=== PATIENT | male | born 1950 | race Caucasian/White ===

== ENCOUNTER 2018-04-30 10:36 | Day surgery (SDC) | payer MEDICARE, BC ==
[2018-04-23 12:19] VITALS: BMI 25.8
[~2018-04-30 10:36] MED LIST: LIDOCAINE 1% 20 ML VIAL (10MG/ML) FOR IV START INTRADERMA PRN; MIDAZOLAM (PF) 2 MG/2 ML VIAL IV PRN
[2018-04-30 11:04] VITALS: PULSE 59; RESP 16; TEMP 97.1
[2018-04-30] MEDS: LACTATED RINGERS 1,000 ML IV SCH ×2 (11:15→11:58)
[2018-04-30] MEDS ORDERED: PROPOFOL 10 MG/ML 20 ML VIAL IV ONE (12:02)
[2018-04-30] MEDS ORDERED: IV FLUID CONTINUATION 1,000 ML IV ONE (12:20)
[2018-04-30 12:22] VITALS: BP 146/87
--- NOTE | 2018-04-30 12:24 | P.PCN ---
Date of Procedure: 04/30/18 Procedure(s) Performed: Procedure: Esophagogastroduodenoscopy and biopsy. Preoperative diagnosis: Chronic reflux symptoms. Postoperative diagnosis: 1. No definite hiatal hernia or obvious esophagitis or complicated reflux disease. 2. Mild gastritis. 3. Multiple biopsies obtained from the duodenum, antrum and esophagus. Preparation sedation: Was provided by anesthesia. Brief clinical history: The patient is 67-year-old male who was chronic symptoms of sore throat and acid regurgitation in his throat for which he has medicated with antacids as needed. No alarm symptoms. He was evaluated by ENT and referred to us for further evaluation for esophagitis or complicated reflux disease. Procedure: With the patient on his left lateral decubitus position and after informed consent and adequate sedation, I passed the Olympus-GIF 160 video upper endoscope through the cricopharyngeus down the esophagus. GE junction was around 40-41 cm from the incisors and there was no definite hiatal hernia or any obvious esophagitis or complicated reflux disease. The endoscope was then passed into the stomach which was insufflated with air and inspected in detail including the retroflex view in the cardia. There was some mottling and erythema in the antrum but no ulcers or erosions. Pyloric channel, duodenal bulb, post bulbar area and descending duodenum appeared within normal limits. I obtained multiple biopsies from the duodenum, antrum and esophagus then the endoscope was withdrawn. The patient tolerated the procedure well. Plan: The patient was reassured. Will await biopsy results and make further plans based on his course and biopsy results. He will follow up with you as planned.
== END 2018-04-30 12:50 | disposition home or self-care (01) ==
LOC: ORWHC2ENDO 10:36
DX: K29.50 Unspecified chronic gastritis without bleeding (principal); K21.9 Gastro-esophageal reflux disease without esophagitis; I10 Essential (primary) hypertension; Z87.891 Personal history of nicotine dependence; F32.9 Major depressive disorder, single episode, unspecified; G47.00 Insomnia, unspecified; G62.9 Polyneuropathy, unspecified; Z79.899 Other long term (current) drug therapy
CPT/HCPCS: 88305; 43239; J2704

== ENCOUNTER 2024-06-21 10:34 | Emergency (ER) | payer MEDICARE, BC ==
--- NOTE | 2024-06-21 11:20 | ED ---
Abdominal Pain HPI - General Chief Complaint: Abdominal Pain Stated Complaint: constipation Time Seen by Provider: 06/21/24 10:51 Source: patient, RN notes reviewed Mode of arrival: ambulatory Limitations: no limitations - History of Present Illness Initial Comments: This is a 73-year-old male with history of GERD and TURP presenting for constipation x 3 weeks. Patient endorses history of recurrent constipation. Complaining of lower abdominal pain starting earlier today. Patient states he went to urgent care for an enema twice with minimal relief. Endorses use of Fleet enema, magnesium citrate and docusate at home with minimal relief. Endorses recent colonoscopy with discovery of benign polyps. Denies fever, chills, dyspnea, chest pain, nausea/vomiting. MD Complaint: abdominal pain Onset/Timin -: week(s) Location: LLQ, RLQ Radiation: none Migration to: no migration Severity scale (1-10): 3 Quality: cramping Consistency: constant Improves With: nothing Worsens With: nothing Treatments Prior to Arrival: other (Fleet enema, mag citrate, docusate) - Related Data Home Medications Medication Instructions Recorded Confirmed Doxycycline Hyclate 100 mg PO DAILY 04/23/18 04/30/18 Lidocaine 5% Patch [Lidoderm] 1 patch TOPICAL DAILY PRN 04/23/18 04/30/18 Losartan Potassium [Cozaar] 100 mg PO DAILY 04/23/18 04/30/18 Metoprolol Tartrate [Lopressor] 50 mg PO BID 04/23/18 04/30/18 Prazosin HCl 1 mg PO HS 04/23/18 04/30/18 Sertraline [Zoloft] 100 mg PO DAILY 04/23/18 04/30/18 Zolpidem Tartrate [Ambien] 10 mg PO HS PRN 04/23/18 04/30/18 Previous Rx's Medication Instructions Recorded Sennosides [Senokot] 17.2 mg PO DAILY #20 tablet 06/21/24 Allergies Allergy/AdvReac Type Severity Reaction Status Date / Time IV CONTRAST Allergy Unknown Uncoded 04/30/18 10:58 Review of Systems ROS Statement: Those systems with pertinent positive or pertinent negative responses have been documented in the HPI. ROS Other: All systems not noted in ROS Statement are negative. Past Medical History Past Medical History: GERD/Reflux, Hypertension, Skin Disorder Additional Past Medical History / Comment(s): tastes acid in mouth, sore throat @times, dry cough, bumps on scalp, lyly. peripheral neuropathy-numb from knees down, hx. colon polyps History of Any Multi-Drug Resistant Organisms: None Reported Past Surgical History: Hernia Repair, Orthopedic Surgery, Prostate Surgery Additional Past Surgical History / Comment(s): prostate surg. x4-some for bleeding, TURP x2, ORIF left ankle, colonoscopies,cataracts removed Past Anesthesia/Blood Transfusion Reactions: Motion Sickness, Postoperative Jitendra sea & Vomiting (PONV) Past Psychological History: PTSD Past Alcohol Use History: Occasional Past Drug Use History: None Reported - Past Family History Mother Family Medical History: No Reported History General Exam Limitations: no limitations General appearance: alert, in no apparent distress Head exam: Present: atraumatic, normocephalic, normal inspection Eye exam: Present: normal appearance, PERRL, EOMI. Absent: scleral icterus, conjunctival injection, periorbital swelling ENT exam: Present: normal exam, mucous membranes moist Neck exam: Present: normal inspection. Absent: tenderness, meningismus, lymphadenopathy Respiratory exam: Present: normal lung sounds bilaterally. Absent: respiratory distress, wheezes, rales, rhonchi, stridor Cardiovascular Exam: Present: regular rate, normal rhythm, normal heart sounds. Absent: systolic murmur, diastolic murmur, rubs, gallop, clicks GI/Abdominal exam: Present: soft, tenderness (Diffuse tenderness, especially in lower quadrants), diminished bowel sounds, hypoactive bowel sounds. Absent: distended, guarding, rebound, rigid Rectal exam: Present: normal inspection, normal rectal tone. Absent: black stool, bloody stool, fecal impaction, hemorrhoids, mass, tenderness Extremities exam: Present: normal inspection, full ROM, normal capillary refill. Absent: tenderness, pedal edema, joint swelling, calf tenderness Back exam: Present: normal inspection Neurological exam: Present: alert, oriented X3, CN II-XII intact Psychiatric exam: Present: normal affect, normal mood Skin exam: Present: warm, dry, intact, normal color. Absent: rash Course Vital Signs 06/21/24 06/21/24 06/21/24 10:50 13:47 16:11 Temperature 97.5 F L 98.1 F Pulse Rate 69 72 66 Respiratory 20 18 18 Rate Blood Pressure 164/84 162/72 155/86 O2 Sat by Pulse 99 97 97 Oximetry Medical Decision Making - Medical Decision Making Was pt. sent in by a medical professional or institution (, JORDY, DIRECTOR OF QUALITY IMPROVEMENT, urgent care, hospital, or long term...) When possible be specific @ -No Did you speak to anyone other than the patient for history (EMS, parent, family, police, friend...)? What history was obtained from this source @ -No Did you review nursing and triage notes (agree or disagree)? Why? @ -I reviewed and agree with nursing and triage notes Were old charts reviewed (outside hosp., previous admission, EMS record, old EKG, old radiological studies, urgent care reports/EKG's, long term records)? Report findings @ -No old charts were reviewed Differential Diagnosis (chest pain, altered mental status, abdominal pain women, abdominal pain men, vaginal bleeding, weakness, fever, dyspnea, syncope, headache, dizziness, GI bleed, back pain, seizure, CVA, palpatations, mental health, musculoskeletal)? @ -Differential Abdominal Pain Men: Appendicitis, cholecystitis, diverticulosis, ischemic bowel, pancreatitis, he patitis, UTI, gastroenteritis, AAA, incarcerated hernia, bowel obstruction, constipation, inflammatory bowel, hepatitis, peptic ulcer disease, splenic infarction, perforated viscus, testicular torsion, this is not meant to be an all-inclusive list EKG interpreted by me (3pts min.). @ -Not done X-rays interpreted by me (1pt min.). @ - KUB shows nonobstructive bowel gas pattern. CT interpreted by me (1pt min.). @ -Abdomen/pelvic CT shows no evidence of acute process. Mild colonic stool with diverticulosis noted as well as prostatomegaly. U/S interpreted by me (1pt. min.). @ -None done What testing was considered but not performed or refused? (CT, X-rays, U/S, labs)? Why? @ -None What meds were considered but not given or refused? Why? @ -None Did you discuss the management of the patient with other professionals (professionals i.e. JORDY Rey, DIRECTOR OF QUALITY IMPROVEMENT, lab, RT, psych nurse, psychotherapist social worker, tank furnace operator, teacher, boat officer, rehabilitation caseworker)? Give summary @ -No Was smoking cessation discussed for >3mins.? @ -No Was critical care preformed (if so, how long)? @ -No Were there social determinants of health that impacted care today? How? (Homelessness, low income, unemployed, alcoholism, drug addiction, transportation, low edu. Level, literacy, decrease access to med. care, long-term, rehab)? @ -No Was there de-escalation of care discussed even if they declined (Discuss DNR or withdrawal of care, Hospice)? DNR status @ -No What co-morbidities impacted this encounter? (DM, HTN, Smoking, COPD, CAD, Cancer, CVA, ARF, Chemo, Hep., AIDS, mental health diagnosis, sleep apnea, morbid obesity)? @ -None Was patient admitted / discharged? Hospital course, mention meds given and route, prescriptions, significant lab abnormalities, going to OR and other pertinent info. @ -Lab work generally unremarkable with thrombocytopenia at 145. Stool occult b lood negative. KUB shows nonobstructive bowel gas pattern. IV contrast dye premedication of IV Benadryl, Pepcid and Solu-Medrol provided prior to CT scan. Abdomen/pelvic CT shows no evidence of acute process. Mild colonic stool with diverticulosis noted as well as prostatomegaly. Patient provided p.o. magnesium citrate and IV normal saline. Enema performed with significant relief of GI obstruction noted by patient. Sennosides sent to patient's pharmacy. Advised to continue previously used medications and enema for at home relief of constipation as needed. Advise increase insoluble fiber and prune juice intake. Advised follow-up with gastroenterology to address recurrent constipation. Discussed patient with Dr. Benito. Undiagnosed new problem with uncertain prognosis? @ -No Drug Therapy requiring intensive monitoring for toxicity (Heparin, Nitro, Insulin, Cardizem)? @ -No Were any procedures done? @ -Enema performed by RN Diagnosis/symptom? @ -Constipation Acute, or Chronic, or Acute on Chronic? @ -Acute Uncomplicated (without systemic symptoms) or Complicated (systemic symptoms)? @ -Uncomplicated Side effects of treatment? @ -No Exacerbation, Progression, or Severe Exacerbation? @ -Progression Poses a threat to life or bodily function? How? (Chest pain, USA, GA, pneumonia, PE, COPD, DKA, ARF, appy, cholecystitis, CVA, Diverticulitis, Homicidal, Suicidal, threat to staff... and all critical care pts) @ -No - Lab Data Result diagrams: 06/21/24 12:47 06/21/24 12:47 Lab Results 06/21/24 06/21/24 06/21/24 Range/Units 12:47 12:47 12:47 WBC 5.4 (3.8-10.6) k/uL RBC 4.56 (4.30-5.90) m/uL Hgb 13.0 (13.0-17.5) gm/dL Hct 40.0 (39.0-53.0) % MCV 87.8 (80.0-100.0) fL MCH 28.4 (25.0-35.0) pg MCHC 32.4 (31.0-37.0) g/dL RDW 12.7 (11.5-15.5) % Plt Count 145 L (150-450) k/uL MPV 8.9 Neutrophils % 57 % Lymphocytes % 34 % Monocytes % 4 % Eosinophils % 2 % Basophils % 0 % Neutrophils # 3.1 (1.3-7.7) k/uL Lymphocytes # 1.8 (1.0-4.8) k/uL Monocytes # 0.2 (0-1.0) k/uL Eosinophils # 0.1 (0-0.7) k/uL Basophils # 0.0 (0-0.2) k/uL Sodium 135 L (137-145) mmol/L Potassium 4.6 (3.5-5.1) mmol/L Chloride 104 (98-107) mmol/L Carbon Dioxide 27 (22-30) mmol/L Anion Gap 4 mmol/L BUN 21 H (9-20) mg/dL Creatinine 1.07 (0.66-1.25) mg/dL Est GFR (CKD-EPI)AfAm 79 (>60 ml/min/1.73 sqM) Est GFR (CKD-EPI)NonAf 68 (>60 ml/min/1.73 sqM) Glucose 101 H (74-99) mg/dL Calcium 9.2 (8.4-10.2) mg/dL Total Bilirubin 1.2 (0.2-1.3) mg/dL AST 24 (17-59) U/L ALT 16 (4-49) U/L Alkaline Phosphatase 25 L (38-126) U/L Total Protein 6.1 L (6.3-8.2) g/dL Albumin 3.8 (3.5-5.0) g/dL Stool Occult Blood Negative (Negative) Disposition Clinical Impression: Constipation Disposition: HOME SELF-CARE Condition: Good Instructions (If sedation given, give patient instructions): Constipation (ED), High Fiber Diet (ED) Additional Instructions: Increase insoluble fiber and prune juice intake. Follow-up with Dr. Pompa Prescriptions: Sennosides [Senokot] 17.2 mg PO DAILY #20 tablet Is patient prescribed a controlled substance at d/c from ED?: No Referrals: Antony Sheehan DO [Primary Care Provider] - 1-2 days Cora Pompa MD [STAFF PHYSICIAN] - 1-2 days Time of Disposition: 15:47
--- NOTE | 2024-06-21 11:37 | XR ---
EXAMINATION TYPE: XR KUB DATE OF EXAM: 06/21/2024 11:30 AM CLINICAL HISTORY: Constipation TECHNIQUE: Two Upright KUB images of the abdomen are obtained. COMPARISON: None. FINDINGS: Scattered gas is seen in non-distended small bowel loops. Gas and fecal material is seen in non-distended colon. Mild to moderate right-sided colonic fecal prominence. Lung bases are clear. No free air is seen. Some vascular desiccation the pelvis. Surgical clips overlie the right iliac bone. There is some narrowing and sclerosis of the bilateral sacroiliac joints. IMPRESSION: Overall nonobstructive bowel gas pattern. [facility], , 06/21/2024 11:35 AM
[2024-06-21] MEDS: MAGNESIUM CITRATE 296 ML BOTTLE PO ONE (12:16)
[2024-06-21] MEDS: SODIUM CHLORIDE 0.9% 1,000 ML IV STA (12:48)
[2024-06-21 13:00] LABS: Basophils % (A) 0 %; Eosinophils # (A) 0.1 k/uL (0-0.7); Eosinophils % (A) 2 %; Lymphocytes # (A) 1.8 k/uL (1.0-4.8); Lymphocytes % (A) 34 %; MCH 28.4 pg (25.0-35.0); MCHC 32.4 g/dL (31.0-37.0); MCV 87.8 fL (80.0-100.0); Mean Platelet Volume 8.9; Monocytes # (A) 0.2 k/uL (0-1.0); Monocytes % (A) 4 %; Neutrophils # (A) 3.1 k/uL (1.3-7.7); Neutrophils % (A) 57 %; Platelet Count 145 k/uL (150-450); RBC 4.56 m/uL (4.30-5.90); RDW 12.7 % (11.5-15.5); WBC 5.4 k/uL (3.8-10.6)
[2024-06-21 13:19] LABS: ALT 16 U/L (4-49); AST 24 U/L (17-59); African American GFR (CKD) 79 (>60 ml/min/1.73 sqM); Albumin 3.8 g/dL (3.5-5.0); Alkaline Phosphatase 25 U/L (38-126); Anion Gap 4 mmol/L; Blood Urea Nitrogen 21 mg/dL (9-20); Calcium 9.2 mg/dL (8.4-10.2); Carbon Dioxide 27 mmol/L (22-30); Chloride 104 mmol/L (98-107); Glucose 101 mg/dL (74-99); Non-African American GFR(CKD) 68 (>60 ml/min/1.73 sqM); Potassium 4.6 mmol/L (3.5-5.1); Sodium 135 mmol/L (137-145); Total Bilirubin 1.2 mg/dL (0.2-1.3); Total Protein 6.1 g/dL (6.3-8.2)
[2024-06-21 13:49] VITALS: RESP 18; TEMP 98.1
[2024-06-21] MEDS: FAMOTIDINE 20 MG/2 ML VIAL IV STA (13:56)
[2024-06-21] MEDS: methylPREDNISolone SOD SUCCI 125 MG/2 ML VIAL IV STA (13:56)
[2024-06-21] MEDS: diphenhydrAMINE 50 MG/ML 1 ML VIAL IVP STA (13:57)
--- NOTE | 2024-06-21 15:28 | CT ---
EXAMINATION TYPE: CT abdomen pelvis w con CT DLP: 1172.2 mGycm, Automated exposure control for dose reduction was used. DATE OF EXAM: 06/21/2024 3:04 PM COMPARISON: KUB radiograph 06/21/2024 CLINICAL INDICATION:Male, 73 years old with history of Constipation; Constipation for several weeks TECHNIQUE: Standard CT of the abdomen and pelvis following the administration of 100 cc of Isovue 3 00 IV contrast material. Coronal and sagittal reformats were performed. FINDINGS: LOWER CHEST: Minimal posterior dependent subsegmental atelectasis is noted. Mild to moderate coronary arterial calcifications. ABDOMEN LIVER: Subcentimeter hypodense focus within the left hepatic lobe which is too small to characterize but likely represents a cyst. GALLBLADDER AND BILE DUCTS: Unremarkable. PANCREAS: Unremarkable. SPLEEN: Unremarkable. ADRENAL GLANDS: Unremarkable. KIDNEYS AND URETERS: No evidence of hydronephrosis or renal calculus. The kidneys enhance symmetrical ly. Lobulated appearance of both kidneys. Contrast is demonstrated within both collecting systems on the delayed phase. Left renal 1.2 cm cyst. PELVIS BLADDER: Unremarkable REPRODUCTIVE: Prostate is enlarged in size measuring 6.1 cm in transverse dimension with diffuse hete rogenous appearance. This indents upon the urinary bladder base. ABDOMEN & PELVIS STOMACH AND BOWEL: Stomach and duodenum are unremarkable. Distal colonic diverticulosis without evide nce for acute diverticulitis. No focal bowel wall thickening or surrounding inflammatory changes. The appendix is within normal limits. No evidence of bowel obstruction. Mild amount of stool is present throughout the colon. PERITONEUM: No evidence of pneumoperitoneum or free fluid. VASCULATURE: Mild atherosclerotic calcifications are present throughout the abdominal aorta and its b ranches. No evidence of aortic aneurysm. Pelvis phleboliths. MUSCULOSKELETAL: No acute osseous abnormalities. Degenerative changes with left anterior SI joint tiffanie dging. Grade 1 anterolisthesis of L4-L5 with bilateral pars defects. Multilevel degenerative disc dis ease of the thoracolumbar spine. DISH of the lower thoracic spine. LYMPH NODES: No evidence for lymphadenopathy. SOFT TISSUE/ABDOMINAL WALL: Tiny fat filled umbilical hernia. Mildly patulous left inguinal ring. Pos tsurgical changes within the right inguinal region. IMPRESSION: 1. No CT evidence for acute abdominal/pelvic process. 2. Mild colonic stool. Colonic diverticulosis without evidence for acute diverticulitis. 3. Prostatomegaly with heterogenous appearance. Correlate with PSA values. [facility], , 06/21/2024 3:25 PM
[2024-06-21 16:13] VITALS: BP 155/86; PULSE 66
== END 2024-06-21 16:11 | disposition home or self-care (01) ==
LOC: EC 10:34
DX: K59.00 Constipation, unspecified (principal); Z91.041 Radiographic dye allergy status
CPT/HCPCS: 36415; 80053; 85025; 82272; 74018; 74177; 99284; 96374; 96375 ×2; 96361; J1200; J3490; Q9967; J2919